=== PATIENT | female | born 1965 | race Caucasian/White ===

== ENCOUNTER 2018-09-20 14:28 | Emergency (ER) | payer SELFPAY ==
[~2018-09-20] VITALS: Ht 160 cm; Wt 65.9 kg
[~2018-09-20 14:28] MED LIST: HYDR50TA15
[2018-09-20 14:32] VITALS: BP 180/76; PULSE 80; RESP 18; Ht 160 cm; Wt 65.9 kg
--- NOTE | 2018-09-20 15:27 | ERD ---
ER Documentation Chief Complaint Chief Complaint pt is bib family with c/o left hand cat bite on Friday, red and swollen HPI 53-year-old female, right-handed, presents to the emergency department, complaining of worsening of erythema, tenderness and warmth of the left hand, after sustaining a provoked cat bite from her own pet 3 days ago. The cath has the vaccines up-to-date. The patient denies fevers, no chills, no shortness of breath. No medications taken at this time for the pain. ROS All systems reviewed and are negative except as per history of present illness. Medications Home Meds Active Scripts Bacitracin* (Bacitracin Zinc Oint*) 28.35 Gm Oint, 1 APPLIC TOP QID for 7 Days, #1 TUB APPLY TO Prov:LETICIA SCHAFFER MD 09/20/18 Ibuprofen* (Motrin*) 600 Mg Tab, 600 MG PO Q8, #20 TAB Prov:LETICIA SCHAFFER MD 09/20/18 Amoxicillin/Potassium Clav (Amox-Clav 875-125 mg Tablet) 875-125 mg Tab, 1 TAB PO BID for 7 Days, #14 TAB Prov:LETICIA SCHAFFER MD 09/20/18 Reported Medications Hydroxyzine Hcl* (Hydroxyzine Hcl*) 50 Mg Tablet 12/03/10 Allergies Allergies: Coded Allergies: No Known Drug Allergies (Verified Allergy, Mild, 02/18/10) PMhx/Soc Medical and Surgical Hx: pt denies Medical Hx, pt denies Surgical Hx History of Surgery: No Anesthesia Reaction: No Hx Neurological Disorder: No Hx Respiratory Disorders: No Hx Cardiac Disorders: No Hx Psychiatric Problems: No Hx Miscellaneous Medical Probl: No Hx Alcohol Use: No Hx Substance Use: No Hx Tobacco Use: No Smoking Status: Never smoker FmHx Family History: No diabetes, No coronary disease Physical Exam Vitals Vital Signs Date Temp Pulse Resp B/P (MAP) Pulse Ox O2 O2 Flow FiO2 Time Delivery Rate 09/20/18 98.3 80 18 180/76 98 14:32 (110) Physical Exam Const: No acute distress Head: Atraumatic Eyes: Normal Conjunctiva ENT: Normal External Ears, Nose and Mouth. Neck: Full range of motion. No meningismus. Resp: Clear to auscultation bilaterally Cardio: Regular rate and rhythm, no murmurs Abd: Soft, non tender, non distended. Normal bowel sounds Skin: No petechiae or rashes Back: No midline or flank tenderness Ext: Left hand: Moderate area of erythema, tenderness and warmth, located on the dorsal aspect of the thumb. No fluctuance. Neur: Awake and alert Psych: Normal Mood and Affect Results 24 hrs Current Medications Medications Dose Sig/Yady Start Time Status Last (Trade) Ordered Route PRN Stop Time Admin Dose Reason Admin Ertapenem 1 100 ml @ ONCE ONCE 09/20/18 DC 09/20/18 gm/ Sodium 200 mls/hr IVPB 15:30 15:59 Chloride 09/20/18 15:59 Procedures/MDM At the time of discharge, vital signs stable, symptoms improved.. Differential diagnosis include but not limited to: superficial thrombosis, cellulitis, erysipelas, shingles, abscess. No evidence of compartment syndrome, neurologic injury, vascular injury, open joint, open fracture, tendon laceration, or foreign body. Low suspicion for acute systemic infectious process. Physical examination and clinical presentation consistent most likely with infected Dog bite of the left hand without evidence of abscess formation. During the ED course the patient remained stable, no new complaints. The patient received treatment with Invanz IV presenting overall improvement of the symptoms. Clinical impression discussed with the patient who agrees with management. The patient is stable to be treated outpatient and will be discharged home with a Rx for antibiotics, anti-inflammatories and pain medications, some side effects of prescribed medications (headache, rash, nausea, vomiting, diarrhea, drowsiness, habituation, bleeding, hypertension, interactions with other medications) were reviewed. The patient was instructed to follow up with the primary care provider in the next 48h. If symptoms persist, worsen or new symptoms develop, then patient should return to the ED immediately. Instructions explained and given directly by me to the patient and relatives with acknowledgment and demonstrated understanding. Disclaimer: Inadvertent spelling and grammatical errors are likely due to EHR/dictation software use and do not reflect on the overall quality of patient care. Also, please note that the electronic time recorded on this note does not necessarily reflect the actual time of the patient encounter. Departure Diagnosis: Primary Impression: Infected bite wound Condition: Stable Additional Instructions: Muchas xiomara por [facility] para toribio servicio. Esperamos que en toribio visita a la tim de emergencia toribio problema medico haya sido solucionado y que se sienta mucho mejor. Para estar seguros que toribio mejoria sigue en proceso, le pedimos el favor de hacer mickie filiberto de seguimiento medico con toribio doctor primario en los proximos 2-4 murillo. Lleve con usted estos documentos y las medicinas recetadas. Si farida sintomas empeoran, NO SE ESPERE, por favor regrese a tim de emergencia INMEDIATAMENTE. En ja que usted no tenga un mdico de atencin primaria: Llame al mdico o clnica comunitaria de referencia que aparece abajo ann-marie las horas de consultorio para hacer mickie filiberto para que le vean. CLINICAS: [facility] [id number] [facility] [phone] [facility] [phone] [facility] [phone] [facility] [phone] [id number] [facility] [phone] LETICIA FINN MD Sep 20, 2018 15:27
[2018-09-20] MEDS ORDERED: ERTAPENEM SODIUM 1 GM in SOD CHLORIDE 0.9% 100 ML IVPB ONE (15:30)
[2018-09-20] MEDS ORDERED: AMOX1TAB10 PO (16:35)
[2018-09-20] MEDS ORDERED: IBUP-1542 PO (16:35)
[2018-09-20] MEDS ORDERED: BACI28.34 TOP (16:35)
== END 2018-09-20 16:15 | disposition home or self-care (01) ==
LOC: FTE 14:28
DX: S61.452A Open bite of left hand, initial encounter (principal); L08.9 Local infection of the skin and subcutaneous tissue, unspecified; W55.01XA Bitten by cat, initial encounter; Y92.9 Unspecified place or not applicable
CPT/HCPCS: 96365; 99284; J1335